=== PATIENT | male | born 1950 | race Caucasian/White ===

== ENCOUNTER → 2016-08-06 | Day surgery (SDC) | payer OTHER ==
[~2016-08-06] MED LIST: ADVAIR 250-501 EACH INH; ADVAIR 250-501 EACH PO; ASPIRIN CHEWABL81 MG PO; B-121000 MCG PO; BACLOFEN 20MG T20 MG PO; DUONEB 2.5-0.5M1 AMP INH; ECOTRIN325 MG PO; HYDROCODONE-APA1 TAB PO; K-TAB ER20 MEQ PO; LASIX20 MG PO; LIPITOR20 MG PO; NORCO 5-325 TA1 EACH PO; POTASSIUM CHLO20 ME1 PO; ROBITUSSIN DM10 ML PO; SYNTHROID100 MCG PO; SYNTHROID125 MCG PO; TAMSULOSIN HCL0.4 MG PO; VENTOLIN (2.5 MG/3 M INH; VENTOLIN HFA8 GM PO; VITAMIN B-121000 MC1 PO
== END | disposition home or self-care (01) ==
LOC: FAS 13:50
DX: H26.9 Unspecified cataract (principal); K44.9 Diaphragmatic hernia without obstruction or gangrene; Z88.5 Allergy status to narcotic agent; Z79.82 Long term (current) use of aspirin; Z79.899 Other long term (current) drug therapy; Z98.890 Other specified postprocedural states; E03.9 Hypothyroidism, unspecified; I25.2 Old myocardial infarction; J44.9 Chronic obstructive pulmonary disease, unspecified; F17.200 Nicotine dependence, unspecified, uncomplicated; G47.30 Sleep apnea, unspecified; Z99.81 Dependence on supplemental oxygen
CPT/HCPCS: V2632